=== PATIENT | female | born 1995 | race Caucasian/White ===

== ENCOUNTER 2022-02-11 08:30 | Outpatient (CLI) | payer OTHER, SELFPAY ==
[2022-02-11 09:33] LABS: Albumin* 4.3 g/dL (3.3-5.0); Chloride* 104 mmol/L (96-114)
[2022-02-11 09:34] LABS: Potassium* 4.3 mmol/L (3.6-5.1); Sodium* 139 mmol/L (135-149)
[2022-02-11 09:36] LABS: Aspartate Amino Transferase* 18 U/L (12-35); Bilirubin Total* 0.7 mg/dL (0.1-1.5); Blood Urea Nitrogen* 11 mg/dL (5-24); Carbon Dioxide* 28 mmol/L (20-32); Cholesterol* 181 mg/dL (90-199); Creatinine* 0.8 mg/dL (0.5-1.5); Estimated Glomerular Filt Rate 103 ml/min; Glucose* 85 mg/dL (60-115); Total Protein* 7.1 g/dL (6.0-8.3)
[2022-02-11 09:37] LABS: Alanine Aminotransferase* 18 U/L (4-35); Alkaline Phosphatase* 58 U/L (40-150); Calcium* 9.3 mg/dL (8.4-10.6); HDL Cholesterol* 43 mg/dL (>=50); LDL Cholesterol Calculated 111 mg/dL (<100); Triglycerides* 136 mg/dL (40-149)
[2022-02-11 10:34] LABS: Free T4 Free Thyroxine* 1.26 ng/dL (0.70-1.85)
== END 2022-02-11 08:31 | disposition home or self-care (01) ==
LOC: NFLDREF 08:31
PROVIDERS: PCP Family Medicine; Visit Provider Family Medicine
DX: E03.9 Hypothyroidism, unspecified (principal); E78.5 Hyperlipidemia, unspecified; E66.9 Obesity, unspecified; F41.9 Anxiety disorder, unspecified
CPT/HCPCS: 80053; 80061; 84439; 84443

== ENCOUNTER 2022-05-01 15:05 | Outpatient (CLI) | payer OTHER, SELFPAY | END 2022-05-01 15:06 | disposition home or self-care (01) | LOC: NFLDREF 05-09 08:00 | PROVIDERS: PCP Family Medicine; Referring Provider Family Medicine; Visit Provider Registered Nurse | DX: E03.9 Hypothyroidism, unspecified (principal) | CPT/HCPCS: 84439; 84443 ==

== ENCOUNTER 2022-06-05 16:15 | Outpatient (CLI) | payer OTHER, SELFPAY | END 2022-06-05 16:16 | disposition home or self-care (01) | LOC: NFLDREF 06-06 10:17 | PROVIDERS: PCP Family Medicine; Referring Provider Family Medicine; Visit Provider Registered Nurse | DX: E03.9 Hypothyroidism, unspecified (principal) | CPT/HCPCS: 84443 ==

== ENCOUNTER 2022-06-24 12:39 | Outpatient (CLI) | payer OTHER, SELFPAY | END 2022-06-24 12:40 | disposition home or self-care (01) | PROVIDERS: PCP Family Medicine; Visit Provider Obstetrics & Gynecology | DX: Z34.91 Encounter for supervision of normal pregnancy, unspecified, first trimester (principal); O36.8310 Maternal care for abnormalities of the fetal heart rate or rhythm, first trimester, not applicable or unspecified; Z3A.01 Less than 8 weeks gestation of pregnancy | CPT/HCPCS: 76817; 84443; 84702; 86850; 86900; 86901 ==

== ENCOUNTER 2022-06-26 16:11 | Outpatient (CLI) | payer OTHER, SELFPAY | END 2022-06-26 16:12 | disposition home or self-care (01) | LOC: NFLDREF 06-30 16:00 | PROVIDERS: PCP Family Medicine; Referring Provider Family Medicine; Visit Provider Obstetrics & Gynecology | DX: E03.9 Hypothyroidism, unspecified (principal); Z34.91 Encounter for supervision of normal pregnancy, unspecified, first trimester | CPT/HCPCS: 84443; 84702 ==

== ENCOUNTER 2022-07-08 10:30 | Day surgery (SDC) | payer OTHER, SELFPAY ==
[2022-07-08] MEDS: DOXYCYCLINE HYCLATE 200 MG in 0.9 % SODIUM CHLORIDE Mini-bag 100 ML 100 MG IVPB (10:34)
[2022-07-08 10:50] VITALS: BP 127/88; PULSE 97; RESP 16; TEMP 36.7; O2SAT 97
[2022-07-08 10:58] VITALS: BMI 35.6
[2022-07-08 11:06] LABS: Hemoglobin* 13.4 gm/dL (12.0-16.0)
[2022-07-08] MEDS: LACTATED RINGERS 1000 ML 1,000 ML 100 ML IV (11:09)
[2022-07-08] MEDS: SODIUM CHLORIDE 0.9 % (FLUSH) 10 ML SYRINGE IVF (11:09)
--- NOTE | 2022-07-08 12:37 | W.ANESCHARGE ---
Anesthesia Charges Start Date/Time Anesthesia Start Date: 07/08/22 Anesthesia Start Time: 12:15 Stop Date/Time Anesthesia Stop Date: 07/08/22 Anesthesia Stop Time: 12:52
[2022-07-08] MEDS: miSOPROStoL 800 MCG/4 TABLET PR (12:40)
--- NOTE | 2022-07-08 12:50 | W.PM.GYNPROC ---
Procedure Note Date Seen: 07/08/22 Procedure Details: Preop diagnosis: Missed AB Postop diagnosis: Missed AB Name of procedure: Suction dilation and curettage Surgeon: Raz Morse Electronic Assembly: None Complications: None EBL: 100mL Drains: None Finding: Pelvic exam: Cervix closed, no gross abnormalities or abnormal discharge. Uterine sound 8cm. Risks, benefits, alternatives, and indications of the procedure were discussed with the patient. She voiced an understanding of the procedure and signed the consent. The patient was taken to the OR were MAC anesthesia was administered without difficulty. She was placed in the dorsal lithotomy position with Garrett type stirrups. The patient was prepared and draped in the normal sterile fashion. Her bladder was emptied with in--out catheter. A bivalved speculum was inserted in the posterior aspect of the vagina. 5 mL 1% lidocaine with epi was injected in the anterior lip of cervix, the single-tooth tenaculum was used to grasp the anterior lip of the cervix. The cervix was sequentially dilated utilizing Hegar dilators up to 8mm. A 8 mm suction curette was advanced to the uterine fundus. The suction was then started. The products of conception were evacuated with the curette rotating on the outward movement, this was repeated about 3-5 times. Afterwards a gentle, sharp curettage was then performed with a large curette. Again suction curette inserted and only blood seen to come out. The tenaculum was removed from the cervix and good hemostasis was noted. 800mcg of Cytotec placed rectally. The patient tolerated the procedure well. Instrument and sponge counts were correct x2. Patient was taken to the recovery room in a stable condition. The patient will go home after recovering from anesthesia and meeting all the criteria for discharge. She was given the instructions regarding follow-up visit in 2 weeks at [facility] and instructions for pain medication.
[2022-07-08 12:55] VITALS: BP 106/56; PULSE 107; RESP 20; TEMP 36.5; O2SAT 97
--- NOTE | 2022-07-08 13:01 | SUR.PHASEII ---
noted blood under pt approx spot size of softball
--- NOTE | 2022-07-08 13:04 | W.ANESCHARGE ---
Anesthesia Charges Start Date/Time Anesthesia Start Date: 07/08/22 Anesthesia Start Time: 12:15 Stop Date/Time Anesthesia Stop Date: 07/08/22 Anesthesia Stop Time: 12:52
[2022-07-08 13:08] VITALS: BP 100/56; PULSE 87; RESP 20; O2SAT 98
[2022-07-08 13:15] VITALS: BP 104/66; PULSE 86; RESP 18; O2SAT 98
[2022-07-08 13:30] VITALS: BP 107/57; PULSE 79; RESP 18; O2SAT 98
== END 2022-07-08 13:55 | disposition home or self-care (01) ==
PROVIDERS: PCP Family Medicine; Visit Provider Obstetrics & Gynecology
PROC: (CPT 59820; principal; 2022-07-08 11:45)
DX: O02.1 Missed abortion (principal)
CPT/HCPCS: 59820; 01965; 36415; 85018; 88305; A9270; J2250; J2704; J3010; J7120

== ENCOUNTER 2022-11-09 10:52 | Outpatient (CLI) | payer OTHER, SELFPAY | END 2022-11-09 10:53 | disposition home or self-care (01) | LOC: NFLDREF 22:05 | PROVIDERS: PCP Family Medicine; Referring Provider Family Medicine; Visit Provider Registered Nurse | DX: E03.9 Hypothyroidism, unspecified (principal) | CPT/HCPCS: 84443 ==

== ENCOUNTER 2022-12-04 12:49 | Outpatient (CLI) | payer OTHER, SELFPAY ==
--- NOTE | 2022-12-04 13:00 | CRLHL7_ITS ---
For Patients: As a result of the Cures Act, medical imaging exams and procedure reports are released immediately into your electronic medical record. You may view this report before your referring provider. If you have questions, please contact your health care provider. INDICATION: First trimester scan, establish dates. COMPARISON: None. TECHNIQUE: Real-time de la garza-scale imaging of the pelvis was performed. FINDINGS: Sonographic imaging demonstrates a single living intrauterine gestation. The embryo demonstrates a regular cardiac rate measuring 178 beats per minute. The embryo`s crown-rump length measurement of 2.2 cm corresponds to a gestational age of 8 weeks 6 days with a sonographic due date of 07/10/2023. There is a normal-appearing yolk sac. There are no gross abnormalities noted within the embryo at this early state of development. The gestational sac has a normal appearance. There is no evidence of a perigestational hemorrhage. The amount of fluid within the sac appears appropriate for gestational age. The cervix is closed. The myometrium appears normal. The ovaries are of normal size. Corpus luteal cyst left ovary. There are no suspicious fluid collections noted in the cul-de-sac. IMPRESSION: Normal first trimester OB ultrasound exam. Gestational age calculated at 8 weeks 6 days with a sonographic due date of 07/10/2023. Dictated by Segundo Mccartney MD @ 12/04/2022 3:32:50 PM (Electronically Signed)
== END 2022-12-04 12:50 | disposition home or self-care (01) ==
PROVIDERS: PCP Family Medicine; Visit Provider Registered Nurse
DX: Z34.91 Encounter for supervision of normal pregnancy, unspecified, first trimester (principal)
CPT/HCPCS: 76817; 86592; 86703; 86704; 86706; 86762; 86787; 86803; 86850; 86900; 86901; 87086; 87340; 87491; 87591

== ENCOUNTER 2022-12-28 18:35 | Emergency (ER) | payer OTHER, SELFPAY ==
[2022-12-28] VITALS (26 sets, daily range): BP systolic 108–169; BP diastolic 63–98; PULSE 93–131; RESP 16; TEMP 36.9; O2SAT 94–100; BMI 36.0
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
[2022-12-28 19:53] LABS: Basophils Absolute Auto 0.01 K/uL (0.00-0.30); Basophils Percent Auto 0.1 % (0.0-3.0); Eosinophils Absolute Auto 0.09 K/uL (0.00-0.50); Eosinophils Percent Auto 0.8 % (0.0-7.0); Hematocrit 40.4 % (33.0-51.0); Hemoglobin* 13.8 gm/dL (12.0-16.0); Immature Granulocytes Abs Auto 0.09 K/uL (0.00-0.30); Immature Granulocytes Pct Auto 0.8 %; Lymphocytes Percent Auto 13.6 % (20-44); Mean Corpuscular HGB Conc 34 gm/dL (32-36); Mean Corpuscular Hemoglobin 30 pg (26-34); Mean Corpuscular Volume 88 fL (80-100); Monocytes Percent Auto 5.4 % (0.0-11.0); Neutrophils Percent Auto 79.3 % (42.0-72.0); Platelet Count* 354 K/uL (140-440); White Blood Count* 10.88 K/uL (4.50-11.00)
[2022-12-28 19:57] LABS: Slide Review Reflex No
[2022-12-28 20:02] LABS: Appearance Urine Cloudy (Clear); Bilirubin Urine Negative (Negative); Blood Urine Negative (Negative); Color Urine Yellow (Yellow); Glucose Urine Negative (Negative); Ketones Urine Negative (Negative); Leukocyte Esterase Urine 3+ (Negative); Nitrite Urine Negative (Negative); Protein Urine Negative (Negative); Urobilinogen Urine 0.2 (0.2-1.0)
[2022-12-28 20:27] LABS: Amorphous Sediment Urine Few; Bacteria Urine Many; RBC Urine 0-2 (0-2); Squamous Epithelial Cell Urine Moderate (None-Few); WBC Urine 25-50 (0-5)
[2022-12-28 20:28] LABS: Mucus Urine Few
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
== END 2022-12-28 21:44 | disposition home or self-care (01) ==
PROVIDERS: Emergency Provider Family Medicine; PCP Family Medicine
DX: R51.9 Headache, unspecified (principal); V43.52XA Car driver injured in collision with other type car in traffic accident, initial encounter
CPT/HCPCS: 36415; 76801; 81001; 85025; 87086; 93005; 99284; 99291

== ENCOUNTER 2022-12-30 14:50 | Outpatient (CLI) | payer OTHER, SELFPAY | END 2022-12-30 14:51 | disposition home or self-care (01) | LOC: NFLDREF 12-31 01:04 | PROVIDERS: PCP Family Medicine; Referring Provider Family Medicine; Visit Provider Obstetrics & Gynecology | DX: Z34.91 Encounter for supervision of normal pregnancy, unspecified, first trimester (principal); E03.9 Hypothyroidism, unspecified | CPT/HCPCS: 84443 ==

== ENCOUNTER 2023-02-24 08:00 | Outpatient (CLI) | payer OTHER, SELFPAY ==
--- NOTE | 2023-02-24 08:15 | CRLHL7_ITS ---
For Patients: As a result of the Century Cures Act, medical imaging exams and procedure reports are released immediately into your electronic medical record. You may view this report before your referring provider. If you have questions, please contact your health care provider. INDICATION: Evaluate anatomy. COMPARISON: 12/28/2022 TECHNIQUE: Real time de la garza scale imaging of the fetus was performed as well as color Doppler analysis of the umbilical vessels. FINDINGS: Sonographic imaging demonstrates a single living intrauterine gestation. Fetus demonstrates a regular cardiac rate of 147 beats per minute. Fetus has a variable position. The placenta lies posteriorly without evidence of placenta previa. The edge of the placenta is located 2.7 cm from the internal cervical os. Amniotic fluid volume appears normal. Single deepest vertical pocket: 3.6 cm. The cervix is closed and measures 3.7 cm in length. The composite ultrasound gestational age is calculated at 20 weeks 3 days with an estimated sonographic due date of 07/11/2023. The estimated weight is 361 grams which lies at the 76th %. The following biometric measurements were obtained: Biparietal diameter: 4.7 cm/20 weeks 1 day 54th% Head circumference: 18.1 cm/20 weeks 3 days 65th% Abdominal circumference: 15.4 cm/20 weeks 4 days 64th% Femur length: 3.4 cm/20 weeks 4 days 63rd% The HC/AC ratio measures: 1.17 range (1.07-1.25) On anatomic survey, there is a normal appearance of the cerebral ventricles, cavum septi pellucidi, cisterna magna and cerebellum. The nose, lips, and facial profile appear normal. The cervical, thoracic and lumbar spine are well visualized and appear normal. There is a normal four-chamber heart view and the left and right ventricular outflow tracts appear normal. The diaphragm and stomach appear normal. The kidneys and bladder also appear normal. There is a normal three-vessel cord and cord insertion site. The four extremities appear normal. IMPRESSION: Normal OB ultrasound exam with concordance of clinical and sonographic dating. No intrinsic abnormalities noted on anatomic survey. Dictated by Segundo Mccartney MD @ 02/24/2023 11:40:33 AM (Electronically Signed)
== END 2023-02-24 08:01 | disposition home or self-care (01) ==
PROVIDERS: PCP Family Medicine; Visit Provider Obstetrics & Gynecology
DX: Z34.92 Encounter for supervision of normal pregnancy, unspecified, second trimester (principal); Z3A.20 20 weeks gestation of pregnancy
CPT/HCPCS: 76805

== ENCOUNTER 2023-03-24 09:41 | Outpatient (CLI) | payer OTHER, SELFPAY | END 2023-03-24 09:42 | disposition home or self-care (01) | LOC: NFLDREF 03-26 14:53 | PROVIDERS: PCP Family Medicine; Referring Provider Family Medicine; Visit Provider Obstetrics & Gynecology | DX: E03.9 Hypothyroidism, unspecified (principal) | CPT/HCPCS: 84443 ==

== ENCOUNTER 2023-04-21 10:21 | Outpatient (CLI) | payer OTHER, SELFPAY | END 2023-04-21 10:22 | disposition home or self-care (01) | LOC: NFLDREF 10:23 | PROVIDERS: PCP Family Medicine; Visit Provider Obstetrics & Gynecology | DX: Z34.92 Encounter for supervision of normal pregnancy, unspecified, second trimester (principal) | CPT/HCPCS: 84443; 86592 ==

== ENCOUNTER 2023-06-02 09:48 | Outpatient (CLI) | payer OTHER, SELFPAY | END 2023-06-02 09:49 | disposition home or self-care (01) | PROVIDERS: PCP Family Medicine; Visit Provider Obstetrics & Gynecology | DX: O99.713 Diseases of the skin and subcutaneous tissue complicating pregnancy, third trimester (principal); E03.9 Hypothyroidism, unspecified; L29.9 Pruritus, unspecified; Z3A.34 34 weeks gestation of pregnancy; Z13.228 Encounter for screening for other metabolic disorders | CPT/HCPCS: 80053; 82239; 84443 ==

== ENCOUNTER 2023-06-15 09:23 | Outpatient (CLI) | payer OTHER, SELFPAY ==
--- NOTE | 2023-06-15 09:45 | US_ITS ---
Patient: ANGIE MUELLER Facility:?[facility] Patient ID:?[id number] Site Patient ID:?[id number]. Site :?[id number] Study:?US-OB Pelvis BPP W GROWTH-06/15/2023 10:05:10 AM Ordering Physician:?RINA KEARNS Final Report: INDICATION: Obesity TECHNIQUE: Real time de la garza scale imaging of the fetus was performed. COMPARISON: 02/24/2023 FINDINGS: Sonographic imaging demonstrates a single living intrauterine gestation. Fetus demonstrates a regular cardiac rate of 154 beats per minute. Fetus has a tanna breech position. The placenta lies posteriorly. Amniotic fluid volume appears normal and there is a single deepest pocket of 6.0 cm. The estimated weight is 3272gm which lies at the 92nd %. On the prior OB ultrasound dated 02/24/2023 the estimated weight was at the 76th percentile. BPD 55th percentile. HC 79th percentile. AC greater than 97th percentile. FL 76th percentile. The fetus was active and demonstrated normal breathing movements. There was normal flexion and extension of the trunk and extremities. IMPRESSION: Normal biophysical profile score 8/8. Sonographic gestational age 37 weeks 2 days and sonographic due date of 07/04/2023. Sonographic age 10 days ahead of the clinical age. Estimated weight 92nd percentile. Abdominal circumference greater than 97th percentile. Dictated by Segundo Mccartney MD @ 06/15/2023 10:37:04 AM Signed by:?Segundo Mccartney MD @06/15/2023 10:37:04 AM (Electronic Signature)
== END 2023-06-15 09:24 | disposition home or self-care (01) ==
LOC: US 09:24
PROVIDERS: PCP Family Medicine; Visit Provider Obstetrics & Gynecology
DX: O99.213 Obesity complicating pregnancy, third trimester (principal); O36.63X0 Maternal care for excessive fetal growth, third trimester, not applicable or unspecified; Z3A.37 37 weeks gestation of pregnancy
CPT/HCPCS: 76816; 76819

== ENCOUNTER 2023-06-15 10:17 | Outpatient (CLI) | payer OTHER, SELFPAY ==
[2023-06-16 13:34] LABS: Strep B DNA Probe POSITIVE (Negative)
[2023-06-16 13:43] LABS: Strep B Susceptibility Needed? No
== END 2023-06-15 10:18 | disposition home or self-care (01) ==
LOC: NFLDREF 10:17
PROVIDERS: PCP Family Medicine; Visit Provider Obstetrics & Gynecology
DX: Z34.93 Encounter for supervision of normal pregnancy, unspecified, third trimester (principal)
CPT/HCPCS: 87081; 87653

== ENCOUNTER 2023-06-23 08:01 | Outpatient (CLI) | payer OTHER, SELFPAY ==
[2023-06-23] VITALS (26 sets, daily range): BP systolic 122–135; BP diastolic 66–82; PULSE 108–135; RESP 18; TEMP 36.6; O2SAT 96–100
[2023-06-23] MEDS: TERBUTALINE 1 MG/ML INJ 0.25 MG SUBCUT (09:48)
--- NOTE | 2023-06-23 10:40 | W.PM.GYNPROC ---
Procedure Note Time Seen by Provider: 10:40 Date of procedure: 06/23/23 Will [facility] bill your pro fee for this procedure?: Yes Pre-op diagnosis: Jeffery breech malpresentation Post-op diagnosis: Transverse malpresentation Procedure: External cephalic version (unsuccessful) Anesthesia: none Complications: None Surgeon: Giuseppe Contreras MD Senior Planner: Bri Hardwick Condition: stable Procedure Description: The risks, benefits, and alternatives of performing an ECV were discussed on admission, including the risk of risks of a non-reassuring heart rate, PROM, placental abruption, possible emergency , and fetomaternal hemorrhage. We reviewed that success rate is dependent upon provider experience, amniotic fluid volume, placental location, and maternal weight. Regional anesthesia is associated with improved success. We discussed that in the case of a failed ECV, we plan a delivery for persistent malpresentation. Consent was obtained and the patient desired to proceed. Ultrasound confirmed jeffery breech malpresentation prior to procedure. Pre-procedure NST was reactive. Terbutaline 0.25 mg SQ was given and we then proceeded with the procedure. With manual pressure applied to the maternal abdomen, we attempted to elevate the breech and proceed with version in a clockwise fashion. The vertex was noted to be mobile, where we were able to successfully convert presentation to transverse back up with 1 attempt. We then proceeded with 3 more clockwise attempts to convert from transverse to cephalic presentation, however the breech was unable to be moved beyond the maternal right pelvis. heart rate checks were performed periodically, which were reassuring throughout. A total of 4. Ultimately the procedure was unsuccessful and presentation at the conclusion was transverse. Both mom and baby were stable. During a period of recovery, she had a reactive and reassuring heart tracing without uterine contractions. She was discharged to home in stable condition, return precautions reviewed.
--- NOTE | 2023-06-23 10:50 | P.OBHP_ITS ---
OB - H&P: HPI Labor/Induction History of Present Illness Chief Complaint: The patient is a [] year old [] para [] at [] weeks gestation by [], who presents with []. [] Chief complaint: ECV Narrative: Ingrid Rouse is a 27 year old female Specific Issues/Plans # BMI 36.2 Hemoglobin A1c 5% on 12/04/22 Daily baby aspirin starting at 12 weeks to reduce risk of preeclampsia Growth US and BPP at 36 weeks, then weekly NST until delivery. # Hypothyroidism. Taking 175 mcg daily. Will check TSH with free T4 each trimester. * 12/30/22:0.404 * 03/24/23:0.395 * 04/21/23: 0.335 * 06/02/23: 0.535 * 6 weeeks : [] # Due for Pap smear. # Tachycardic at 30 weeks. 125 bpm. Repeat 115-123. Rapid rate, regular rhythm. Lungs clear. Recent normal TSH and hgb. EKG on 05/05/23: Sinus tachy at [address] Kim - EKG not concerning. I suspect dehydration. Encouraged pushing fluids. If symptomatic, or persistent tachy, return for reevaluation. # Body itchiness with papular lesions suspect urticaria vs PUPPS. -Topical triamcinolone and vistaril ordered: symptoms resolved Bile acids normal at 3 # Jeffery breech presentation at 35 weeks, 6 days gestation. External cephalic version to be scheduled 06/23/23. # Suspected macrosomia at 36 weeks, EFW 92% and AC >97%. # GBS positive. No antibiotic allergies. Growth US and BPP at 36 weeks due to obesity and hypothyroidism: EFW 3272 g = 92%. AC greater than 97%. BPD 55%, HC 79%, FL 76%. SDP 6 cm. BP 10/06. Patient plans to obtain flu vaccination through her employer. COVID: Completed and boosted, not up-to-date with boosters. Recommended. Patient declines 01/27. TDAP: 05/05/23 Meds Home Medications and Allergies Home Medications Medication Instructions Recorded Confirmed Type prenat.vits,sylvia,wbc-zbdq-rdsah 1 tab PO QDAY 07/02/22 06/23/23 History aspirin 81 mg capsule 81 mg PO QDAY 01/27/23 06/23/23 History Allergies Allergy/AdvReac Type Severity Reaction Status Date / Time No Known Drug Allergies Allergy Verified 06/23/23 08:34 OB - H&P: Exam Physical Exam: Vital signs: Temp Pulse Resp BP Pulse Ox 97.8 F 113 H 18 122/66 98 06/23/23 08:20 06/23/23 08:40 06/23/23 08:20 06/23/23 08:40 06/23/23 10:47
--- NOTE | 2023-06-23 10:51 | P.OBHP_ITS ---
OB - H&P: HPI Labor/Induction History of Present Illness Time Seen by Provider: 11:00 Date Seen: 06/23/23 Chief Complaint: Ingrid is a 27yo at 37w0d seen for ECV for breech malpresentation and 37 week visit for H&P. Her H&P was completed at triage given concurrent procedure. is complicated by breech presentation, suspected macrosomia, obesity, dyslipidemia migraines and anxiety. She denies regular/painful uterine contractions, vaginal bleeding, leaking of fluid. Endorses active movement. Review of system is was negative - no chest pain, dyspnea, fevers/chills, nausea/vomiting, bowel or bladder concerns. Past medical, surgical and social history reviewed and updated as needed. Chief complaint: ECV Narrative: Ingrid Rouse is a 27 year old female Specific Issues/Plans # BMI 36.2 Hemoglobin A1c 5% on 12/04/22 Daily baby aspirin starting at 12 weeks to reduce risk of preeclampsia Growth US and BPP at 36 weeks, then weekly NST until delivery. # Hypothyroidism. Taking 175 mcg daily. Will check TSH with free T4 each trimester. * 12/30/22:0.404 * 03/24/23:0.395 * 04/21/23: 0.335 * 06/02/23: 0.535 * 6 weeks : [] # Due for Pap smear. # Tachycardic at 30 weeks. 125 bpm. Repeat 115-123. Rapid rate, regular rhythm. Lungs clear. Recent normal TSH and hgb. EKG on 05/05/23: Sinus tachy at [address] Kim - EKG not concerning. I suspect dehydration. Encouraged pushing fluids. If symptomatic, or persistent tachy, return for reevaluation. # Body itchiness with papular lesions suspect urticaria vs PUPPS. -Topical triamcinolone and vistaril ordered: symptoms resolved Bile acids normal at 3 # Persistent malpresentation [x] unsuccessful ECV - IOL consent and scheduling form completed 06/22 # Suspected macrosomia at 36 weeks, EFW 92% and AC >97%. # GBS positive. No antibiotic allergies. Growth US and BPP at 36 weeks due to obesity and hypothyroidism: EFW 3272 g = 92%. AC greater than 97%. BPD 55%, HC 79%, FL 76%. SDP 6 cm. BP 8/8. Patient plans to obtain flu vaccination through her employer. COVID: Completed and boosted, not up-to-date with boosters. Recommended. Patient declines 01/27. TDAP: 05/05/23 Meds Home Medications and Allergies Home Medications Medication Instructions Recorded Confirmed Type prenat.vits,sylvia,byk-vlqm-wklcq 1 tab PO QDAY 07/02/22 06/23/23 History aspirin 81 mg capsule 81 mg PO QDAY 01/27/23 06/23/23 History Allergies Allergy/AdvReac Type Severity Reaction Status Date / Time No Known Drug Allergies Allergy Verified 06/23/23 08:34 OB - H&P: Exam Physical Exam: Vital signs: Temp Pulse Resp BP Pulse Ox 97.8 F 113 H 18 122/66 98 06/23/23 08:20 06/23/23 08:40 06/23/23 08:20 06/23/23 08:40 06/23/23 10:47 Narrative: Physical exam: General: No acute distress Psych: Alert and oriented x3, full affect Heart: Regular rate and rhythm, no murmur rub or gallop Lungs: Clear to auscultation bilaterally Abdomen: Gravid. Otherwise soft and nontender. Transverse presentation after unsuccessful ECV. OB - Problem Based A/P Additional Plan (1) Breech presentation: Status: Acute (2) macrosomia affecting management of mother, antepartum: Status: Acute (3) Obesity (BMI 35.0-39.9 without comorbidity): Status: Acute (4) Migraines: Status: Acute (5) Mild anxiety: Status: Chronic (6) Dyslipidemia: Status: Acute (7) Hypothyroid: Status: Chronic Plan Ms. Rouse is a 26yo at 37w0d seen for ECV and visit H&P. Please see procedure note for details of ECV (unsuccessful). Past medical, soc ial and surgical history is updated as needed. No acute concerns. Plan to proceed with primary delivery at/beyond 39 weeks in the setting of malpresentation. Recommend we read assess presentation prior to proceeding with delivery, where induction could be considered if the fetus spontaneously converts to cephalic. We additionally discussed the role of potential repeat ECV under spinal anesthetic, patient declined. Next visit in 1 week. Return precautions reinforced.
[2023-06-23] MEDS: LACTATED RINGERS 1000 ML 500 ML IV (11:30)
[2023-06-23] MEDS: LACTATED RINGERS 500 ML IV (12:30)
--- NOTE | 2023-06-23 13:07 | PC.OBNST ---
NST Note NST Note Start: 06/23/23 08:21 Freq: ONCE Status: Active Protocol: Document 06/23/23 13:06 [id number] (Rec: 06/23/23 13:07 CUDDY [id number]) NST Note 1 Para (# of births) 0 EDC 07/14/23 Gestational Age In Weeks & Days 37 Weeks & 0 Days Other Complaints Here for an ECV Reactive Yes Appropriate for Gestational Age Yes RN Nida Way RN Date 06/23/23 Reactive Yes Appropriate for Gestational Age Yes RN Saira Blanco RN Date 06/23/23 OB NST charge Yes Complete NST Note via Write Note Yes The provider's electronic signature indicates the NST is reactive/appropriate for gestational age. *Note to provider: If an addendum is required, open the patient's chart and click on the note under the Nurse/Allied Health tab.
== END 2023-06-23 13:10 | disposition home or self-care (01) ==
LOC: OB CLI 08:02 → OB 08:03
PROVIDERS: PCP Family Medicine; Visit Provider Obstetrics & Gynecology
DX: O32.1XX0 Maternal care for breech presentation, not applicable or unspecified (principal); O99.213 Obesity complicating pregnancy, third trimester; E66.9 Obesity, unspecified; Z3A.37 37 weeks gestation of pregnancy
CPT/HCPCS: 59025; 59412; 76815; G0463; J3105; J7120

== ENCOUNTER 2023-07-07 05:03 | Inpatient (IN) | payer OTHER, SELFPAY ==
[2023-07-07] VITALS (34 sets, daily range): BP systolic 105–147; BP diastolic 36–78; PULSE 91–113; RESP 16–18; TEMP 36.4–37.1; O2SAT 92–98; BMI 39.0
[2023-07-07] MEDS: LACTATED RINGERS 1000 ML 1,000 ML 750 ML IV ×2 (06:00→07:20)
[2023-07-07 06:06] LABS: Basophils Absolute Auto 0.02 K/uL (0.00-0.30); Basophils Percent Auto 0.2 % (0.0-3.0); Eosinophils Absolute Auto 0.05 K/uL (0.00-0.50); Eosinophils Percent Auto 0.5 % (0.0-7.0); Hematocrit 38.9 % (33.0-51.0); Hemoglobin* 13.2 gm/dL (12.0-16.0); Immature Granulocytes Abs Auto 0.08 K/uL (0.00-0.30); Immature Granulocytes Pct Auto 0.8 %; Lymphocytes Percent Auto 16.9 % (20-44); Mean Corpuscular HGB Conc 34 gm/dL (32-36); Mean Corpuscular Hemoglobin 30 pg (26-34); Mean Corpuscular Volume 88 fL (80-100); Monocytes Percent Auto 5.8 % (0.0-11.0); Neutrophils Percent Auto 75.8 % (42.0-72.0); Platelet Count* 300 K/uL (140-440); RDW Coefficient of Variation % 13.1 % (11.5-15.5); Red Blood Count 4.42 m/uL (4.00-5.20); White Blood Count* 10.52 K/uL (4.50-11.00)
[2023-07-07 06:11] LABS: Slide Review Reflex No
--- NOTE | 2023-07-07 07:20 | W.PM.H&PU ---
History & Physical Update History & Physical Update H&P Reviewed and patient assessed: No changes noted H&P Updates: Ms. Zheng is a 27yo at 39w0d GA admitted for primary in the setting of breech malpresentation (unsuccessful ECV at 37 weeks). is otherwise complicated by anxiety, dyslipidemia, hypothyroidism and GBS positivity. Please see full H&P by myself on 06/23/23. Ingrid is feeling well with no acute concerns today. Denies any abdominal pain, vaginal bleeding or leaking of fluids today. Endorses active movement. We reviewed risks/benefits and alternatives to today. All questions answered. Consent was re-initialed. Plan perioperative ancef. BT O+. Peds to be present for delivery in the setting of breech.
[2023-07-07] MEDS: CEFAZOLIN 2 GM INJ IVP (07:48)
[2023-07-07] MEDS: miSOPROStoL 800 MCG/4 TABLET PR (08:44)
--- NOTE | 2023-07-07 08:44 | P.OBPRC_ITS ---
Procedure Time Seen by Provider: 08:44 Date of procedure: 07/07/23 Pre-op diagnosis: Breech malpresentation, 39 weeks gestation Post-op diagnosis: same Procedure Done: Global Will [facility] bill your pro fee for this procedure?: Yes Blood Loss Measurement Type: QBL (350) Bakri Used: No IV fluids (mL): 1,400 Urine Output (mL): 200 Surgeon: Giuseppe Contreras MD Anesthesia Type: Spinal Findings: Unremarkable uterus, bilateral fallopian tubes and ovaries Procedure Name: Primary delivery Procedure Description: Patient was taken to the operating room with IV running. She received cefazolin in preoperative prophylaxis. Spinal anesthesia was administered. Ferraro catheter was inserted. She was prepped and draped in the usual sterile fashion. Anesthesia was tested and found to be adequate. A low-transverse skin incision was made with a scalpel and carried through to the underlying layer of fascia with the scalpel. The subcutaneous fat was dissected off the underlying fascia with Bovie and blunt dissection. The fascia was nicked in the midline with a scalpel, and this incision was extended laterally with scissors. The rectus muscles were in the midline. Peritoneum was identified and entered bluntly. Bovie was used to widen this opening laterally. Ben O retractor was inserted and tightened down, providing excellent visualization of the lower uterine segment. The bladder reflection was found to be well below the planned site for hysterotomy. Low-transverse uterine incision was made with a scalpel. Incision was widened bluntly. The infant's breech was grasped through the hysterotomy and elevated to the hysterotomy. The left leg and breech first delivered, followed by the right leg and trunk. Fetus was rotated to deliver the right then left arms. The head delivered with Vguxvkxxk-Dufzjez-Iljn maneuver and fundal pressure without difficulty. No nuchal cord was noted. Cord was clamped and cut after 30 seconds. Infant was handed off to attending nurses. The placenta was delivered with gentle traction on the cord. The uterus was cleaned of all clots and debris with the dry lap pad. No extensions were noted. The hysterotomy was reapproximated with 0 Vicryl in a running, locked fashion. Uterine atony was noted, where IV oxytocin rate was increased and a dose of IM methergine was administered. Second layer of the same suture was used in imbricating fashion to obtain hemostasis. The adnexa were examined and noted to be normal in appearance. The cul-de-sac and gutters were cleansed with dampened laparotomy sponge, removing any further clots and debris. The Ben O retractor was removed. The hysterotomy was reexamined and a small area of oozing at the midline was noted, where an additional figure of eight with 0 vicryl was applied. Hysterotomy was found to be hemostatic. Excellent uterine tone was noted. The rectus muscles were examined and found to be hemostatic. The fascia was reapproximated with 0 Vicryl in a running fashion. Subcutaneous fat was irrigated and Bovie used on oozing vessels. The subcutaneous fat was reapproximated with 2-0 vicryl suture in a continuos fashion. The skin was closed with a subcuticular stitch of 3-0 monocryl. Surgical glue was applied above this. Patient tolerated procedure well was taken to recovery area in stable condition. Surgical debrief was completed. details: - Liveborn female fetus - weight: 8lb 8 oz - APGARs were 9 and 9 at 1 and 5 minutes respectively Complications: None Pathology: none sent Surgery Debrief Performed: Yes Condition: stable Disposition: floor
--- NOTE | 2023-07-07 09:11 | W.ANESCHARGE ---
Anesthesia Charges Start Date/Time Anesthesia Start Date: 07/07/23 Anesthesia Start Time: 07:24 Stop Date/Time Anesthesia Stop Date: 07/07/23 Anesthesia Stop Time: 08:58
--- NOTE | 2023-07-07 09:38 | P.NB_ITS ---
Nerve Block Nerve Block Time Seen by Provider: 08:50 Date Seen: 07/07/23 Type of block requested by surgeon for post-operative analgesia: TAP Side: bilateral Time out performed: Yes Verification of patient name: Yes Verification of date of : Yes Site marking: site marked Name of person performing procedure: Lenny Continuous monitoring Was continuous monitoring of O2 sat, B/P, bus driver/monitor, recorded every 15 minutes?: Yes Procedure Checklist: sterile prep, needles and gloves Ultrasound guided. Images saved: Yes Medications given in 5ml increments after negative aspiration: Marcaine %: 0.25 mL: 30 Needle gauge: 20 and Exparel mL: 10 Patient tolerated procedure well: Yes Additional comments: Needle noted between internal oblique and transversus abdominus. Local spread visualized Block Charges Block Charge (with Pro Fee): TAP Bilateral Use of Ultrasound Machine for Block: Yes- US Guidance/pain block
--- NOTE | 2023-07-07 09:38 | W.ANESCHARGE ---
Anesthesia Charges Start Date/Time Anesthesia Start Date: 07/07/23 Anesthesia Start Time: 07:24 Stop Date/Time Anesthesia Stop Date: 07/07/23 Anesthesia Stop Time: 08:58
[2023-07-07] MEDS: LACTATED RINGERS 1000 ML 1,000 ML 75 ML IV (12:24)
[2023-07-07] MEDS: DOCUSATE SODIUM 100 MG CAPSULE PO (14:30)
[2023-07-07] MEDS: KETOROLAC 30 MG/ML inj IVP ×2 (14:30→20:30)
[2023-07-08] VITALS (15 sets, daily range): BP systolic 97–127; BP diastolic 67–92; PULSE 82–103; RESP 16–18; TEMP 36.6–37.1; O2SAT 95–97
[2023-07-08] MEDS: KETOROLAC 30 MG/ML inj IVP ×3 (02:21→15:09)
[2023-07-08] MEDS: SODIUM CHLORIDE 0.9 % (FLUSH) 10 ML SYRINGE IVF (02:23)
--- NOTE | 2023-07-08 08:06 | PM.OBPNVD1 ---
OB - PN:Subj Subjective Date Seen: 07/08/23 Patient comments OB post-: pain well controlled infant status: and doing well feeding status: exclusively Narrative: Ingrid is a 27 y.o. who was admitted to [facility] for primary C/S for breech.? She had an uncomplicated primary .? ? The patient feels well.? The pain is well controlled with current medications.? She has no new complaints.? She is breast feeding and reports things are going well.? the patient has done well.? Vitals have been stable.? She has remained afebrile.? Has a good appetite, is tolerating a general diet.? She is voiding without difficulty.? She is passing gas and has not had a bowel movement.? She is ambulating and denies any dizziness.? Has Small amount of rubra lochia.? OB - PN: Obj Exam Physical Exam: Vital signs: Temp Pulse Resp BP Pulse Ox O2 Del Method 97.8 F 91 18 100/69 97 Room Air 07/08/23 04:04 07/08/23 04:04 07/08/23 06:46 07/08/23 04:04 07/08/23 04:04 07/08/23 04:04 Narrative: GENERAL APPEARANCE:? normal affect, alert, no distress MOOD:? appropriate CHEST:? clear to auscultation HEART:? regular rate and rhythm ABDOMEN:? soft, non-tender the uterine fundus is firm At Umbilicus, Midline and is appropriate for the stage of recovery. EXTREMITIES:? normal and no edema Incision: Dressing clean dry and intact, due to be removed today Urinary Catheter Management: Straight: Cath placed during this visit: no Urethral: Cath placed during this visit: yes, but has since been removed by the nurse Reason for continuing: decision to DC catheter Insertion date: 07/07/23 Insertion time: 07:42 Removal date: 07/07/23 Removal time: 21:30 OB - PN: Obj Data Labs Labs: Laboratory Results - last 24 hr 07/08/23 06:12 Hgb 11.0 L OB - PN: A/P Delivery Assessment and Plan (1) care following delivery: Status: Acute (2) Lactating mother: Status: Acute (3) Breech presentation: Status: Acute (4) Obesity (BMI 35.0-39.9 without comorbidity): Status: Acute (5) Hypothyroid: Status: Chronic Plan day: 1 Plan: routine care Comments: Assessment/Plan?G 1 P 1 status post uncomplicated primary .? ?? 1.? Continue route PP cares? 2.? .? May see if desired? 3.? Anticipate discharge home tomorrow or the following day per pt preference? 4. Elevated BP without the diagnosis of hypertension. If additional elevated BP, plan for preeclampsia labs. ?
[2023-07-08] MEDS: DOCUSATE SODIUM 100 MG CAPSULE PO (08:30)
[2023-07-08] MEDS: ACETAMINOPHEN 500 MG TABLET 1000 MG PO (12:47)
[2023-07-08] MEDS: IBUPROFEN 600 MG TABLET PO (20:46)
[2023-07-09] MEDS: ACETAMINOPHEN 500 MG TABLET 1000 MG PO ×2 (01:02→08:00)
[2023-07-09 03:57] LABS: Rapid Plasma Reagin (RPR) Non Reactive (Non Reactive)
[2023-07-09] MEDS: IBUPROFEN 600 MG TABLET PO (04:40)
[2023-07-09] MEDS: DOCUSATE SODIUM 100 MG CAPSULE PO (08:00)
--- NOTE | 2023-07-09 08:34 | PM.OBDSVD1 ---
DS: Providers Provider Date Seen: 07/09/23 Date of admission: 07/07/23 05:03 Primary care physician: Anette Segovia MD Admitting Clinician: Kindra Contreras MD Attending Physician on discharge: Kindra Contreras MD Date of Discharge: 07/09/23 DS: Diagnosis Discharge Diagnosis (1) care following delivery: Status: Acute (2) Lactating mother: Status: Acute (3) Obesity (BMI 35.0-39.9 without comorbidity): Status: Acute (4) Hypothyroid: Status: Chronic Exam Narrative: Exam Narrative: GENERAL APPEARANCE:? normal affect, alert, no distress? MOOD:? appropriate? CHEST:? clear to auscultation and percussion? HEART:? regular rate and rhythm? ABDOMEN:? soft, non-tender the uterine fundus is U/2 and is appropriate for the stage of recovery.?Incision is open to air. Well approximated without drainage, erythema, or edema. EXTREMITIES:? normal and no edema? Const: Vital Signs, click to edit/add: Vital Signs - 24 hr 07/08/23 08:35 07/08/23 12:32 07/08/23 16:00 Temperature 98.4 F 98.2 F 98.4 F Pulse Rate [Pulse Oximeter] 90 93 103 H Respiratory Rate 16 16 16 Blood Pressure [Le ft Arm] 111/78 122/78 120/73 Pulse Oximetry 96 97 Oxygen Delivery Me thod Room Air Room Air 07/08/23 23:33 Temperature 97.9 F Pulse Rate [Pulse Oximeter] 82 Respiratory Rate 16 Blood Pressure [Le ft Arm] 127/92 H Pulse Oximetry 96 Oxygen Delivery Me thod Room Air Documenting provider has reviewed patient's vital signs: yes OB - DS: Summary Hospital Course Hospital Course: The patient is a 27 year old G 1 P 1 at 39.0 weeks gestation that was admitted to the Center on 07/07/23 for primary section for breech presentation. She had an uncomplicated delivery. She delivered a viable female . She is breast feeding. States that when baby is awake she latches well but they are having difficulty keeping her awake. They have been working with the nurses and it is improving. the patient has done well. Her pain is well controlled with current medications.? She has no new complaints.? Urinary output is adequate and she is voiding without difficulty.? Has a good appetite, is tolerating a general diet, is passing flatus, and has had a bowel movement.? Has scant amount of rubra lochia.? She is ambulating well. She declines a prescription for oxycodone as her pain has been very well controlled with ibuprofen and Tylenol. She is planning condoms or a diaphragm for control. Peripartum Data delivery method: Primary C/S; Non-Labored Procedures: Procedures Operation Date: 07/07/23 07:15 Actual Procedure Side Surgeon p Primary Section Kindra Contreras MD complications: none Gender: Female Discharge Plan: Home Status at Discharge Functional status at discharge: independent ambulation Overall status at discharge: patient is progressing back to baseline Time Spent with Patient Time attestation: Total time spent providing and/or coordinating discharge services: Discharge Plan Discharge Disposition: Home, Self-Care Date of Admission: 07/07/23 05:03 Attending Provider on Discharge: Roz Parra Primary Care Provider: Anette Segovia Condition: Stable Anticipated Discharge Date/Time: 07/09/23 14:00 Discharge Medications: New docusate sodium 100 mg Capsule 100 mg PO DAILY Qty: 90 0RF Rx Instructions: Take 1-2 tablets daily as needed for constipation. ibuprofen 600 mg Tablet 600 mg PO Q6H PRNQty: 60 0RF Continued prenat.vits,sylvia,tdj-phhm-jugme Tablet 1 tab PO QDAY levothyroxine 175 mcg tablet 175 mcg PO DAILY Qty: 30 2RF Discharge Orders: Discharge Order (Routine); Ordered 07/09/23 Ordered By: Roz Parra Consulting provider completed their portion of the discharge: Yes Patient Education: OB /Breast Feeding Additional Instructions: Discharge instructions were reviewed with the patient including signs and symptoms of infection and home going medications? ?? Activity restrictions:? Lifting Restrictions: 20 pounds for 6 weeks? No high-impact or core exercises for 6 weeks.?? No not submerge incision under water X 2 weeks?? Nothing vaginally for 6 weeks: no tampons or intercourse? Do not drive while taking narcotic pain medication(s)? Off Work or School for 8 weeks? ?? Symptoms to report to doctor:? -Bleeding that saturates more than one pad per hour? -Passing clots larger than the size of a golf ball? -Pain not relieved by prescribed medication? -Fever above 100.4 degrees Fahrenheit? -A foul vaginal odor? -Difficulty in emotions, mood and functions? -Thoughts of hurting yourself and/or ? -Painful, reddened area in your breast? -Any drainage, redness or tenderness in your IV/epidural site? -Severe headache that doesn't improve after taking medications? -Changes in vision, including temporary loss of vision, blurred vision, and/or light sensitivity? -Upper abdominal pain (usually under ribs on the right side)? -Decrease in urination or painful, frequent urinating? -Chest pain? -Shortness of breath? -Tenderness or pain with redness and/swelling in the calf(s) of your leg? Follow up visits:?? 1. 1 week visit:? incision check.? 2. 2-week visit: discuss feeding/care concerns, review control options and screen for anxiety/depression.? 3. 6-week visit for an annual exam.? ?? consultation services are available to all mothers and babies for the first year after delivery.? To make an appointment, please call [phone].? Follow Up Appointments: [facility] [Provider Group] Forms: MyHealth Info Instructions
[2023-07-09 08:49] VITALS: BP 123/82; PULSE 93; RESP 18; TEMP 36.4; O2SAT 97
== END 2023-07-09 11:54 | disposition home or self-care (01) | DRG 788 ==
PROVIDERS: Admitting Provider Obstetrics & Gynecology; PCP Family Medicine; Visit Provider Obstetrics & Gynecology
PROC: 10D00Z1 Extraction of Products of Conception, Low, Open Approach (ICD-10-PCS; CPT 59514; principal; 2023-07-07 07:15)
DX: O32.1XX0 Maternal care for breech presentation, not applicable or unspecified (principal); O99.344 Other mental disorders complicating childbirth; F41.9 Anxiety disorder, unspecified; O99.284 Endocrine, nutritional and metabolic diseases complicating childbirth; E03.9 Hypothyroidism, unspecified; O99.214 Obesity complicating childbirth; Z3A.39 39 weeks gestation of pregnancy; Z37.0 Single live birth; O99.824 Streptococcus B carrier state complicating childbirth; E78.5 Hyperlipidemia, unspecified; G43.909 Migraine, unspecified, not intractable, without status migrainosus; O16.5 Unspecified maternal hypertension, complicating the puerperium; G89.18 Other acute postprocedural pain
CPT/HCPCS: 01961; 36415; 64488; 76942; 85018; 85025; 86592; 86850; 86900; 86901; 94761; A9270; C9290; J0665; J0690; J1100; J1885; J2210; J2274; J2371; J2405; J2590; J7120

== ENCOUNTER 2023-07-14 10:21 | Outpatient (CLI) | payer OTHER, SELFPAY | END 2023-07-14 10:22 | disposition home or self-care (01) | PROVIDERS: PCP Family Medicine; Visit Provider Obstetrics & Gynecology | DX: O13.5 Gestational [pregnancy-induced] hypertension without significant proteinuria, complicating the puerperium (principal) | CPT/HCPCS: 82565; 84450; 84460; 84520 ==

== ENCOUNTER 2023-07-21 12:24 | Outpatient (CLI) | payer OTHER, SELFPAY ==
--- NOTE | 2023-07-21 17:00 | W.PM.LAC.MC ---
Consult Note - Mom Date of Visit Date of visit: 07/21/23 field sales consultant: Alix York Visit Code: Visit Patient's Information Phone number: [phone] : 1 Para: 1 Allergies No Known Drug Allergies Allergy (Verified 07/21/23 09:15) Mother's Medical History: Medical History (Updated 07/19/23 @ 11:55 by Kindra Contreras MD) GHTN Breech presentation ?O32.1XX0 - Maternal care for breech presentation, not applicable or unspecified (ICD-10) Mild anxiety ?F41.9 - Anxiety disorder, unspecified (ICD-10) Hypothyroid ?E03.9 - Hypothyroidism, unspecified (ICD-10) BMI > 30 Type of Contraception: diaphragm or condoms Delivery Information Delivery type: Primary C/S; Labored (breech) Weeks Gestation: 39.0 Gestational Age: AGA Weight: 3.86 kg Discharge Weight: 3.55 kg Baby's Information Baby's Age at Visit: 14 days Baby's Provider or Clinic: Dr. Barajas Jaundice: No Reason for Consult Reason for Consult: pain with latch, slow weight gain, concern for transfer Past Experience Past Experience: No Current Frequency of Day Feedings: every 2 - 3 hours around the clock, some cluster feeding in the evening Both Breasts: No Suck: fairly strong Latch: fairly wide Length of Time: 10 - 25 minutes Pumping Pumping: No (uses her Haakaa on the side baby doesn't nurse from) Quantity Pumped: about 4 oz total for the day Supplementing EMB Supplement: No Formula Supplement: No Baby Elimination Number of Wet Diapers a Day: 6 - 8 Number of BM a Day: 4 - 6, yellow and seedy Breast/Nipple Condition Breast Information: WNL Maternal Nipple Condition - Left: Common Nipple, Short and Cracking/ Fissures Maternal Nipple Condition - Right: Common Nipple and Short Sore Nipples: Yes (right) Interventions for Sore Nipples: [place] Onsite Pre-Feed weight: 3.422 kg Post-Feed weight: 3.482 kg Milk Transferred (mL): 60 Assessments/Interventions Assessments/Interventions: Met with mom and this now 14 day old ex- term AGA baby for consult. Mom reports was going well and she has even been able to nurse baby without the nipple shield several times. Over the past few days however, nursing has become more difficult and painful and she's had to start using the shield again. She's developed cracks to her left nipple and will sometimes have pale colored drainage on her breast pad from her nipple. Baby is nursing every 2 - 3 hours around the clock with some cluster feeding in the evening. Mom usually offers one side while using the Haakaa on the other. Nursing sessions last 10 - 25 minutes and she gets about .5 oz from the Haakaa each time. Baby has not been supplemented. Breasts WNL- symmetrical with rounded lower quadrants, intramammary distance < 1.5 inches. Mom reports her milk came in on 07/09 - 07/10. Her nipples are short but everted and don't flatten or retract on compression. Several fissures were noted on the left nipple as well as an area of irritation between 12 - 2 o'clock where the nipple meets the areola. Baby has actually lost weight from her initial visit on 03/13 (138 grams or 4.6 oz) and she's 11% below BW at 14 DOL. POC deny any caput/cephalohematoma at delivery. They state she has equal ROM when turning her head and moving her extremities. Palate is WNL. Both her upper and lower frenulum also appear to be WNL. Baby has a strong suck on a finger and the tongue easily extends past gum line when sucking on a finger. The tongue has good lateral movement to the right, but more difficulty on the left. Mom latched baby to the right side with the shield and she reported a better latch than she's had in the last few days. After a few minutes she removed the shield and with some verbal coaching to exaggerate pointing her nipple to baby's nose and bring her on quickly when she opens wide, she was able to get baby on deeply after a few attempts. She was comfortable and stated this was a better latch than she'd had recently. Baby nursed 10 - 15 minutes with some stimulation. Mom started with the shield on the left side but b/c of the irritation at the top a 24 mm was suggested and she was able to latch baby after a few attempts. She removed the shield and was able to latch baby without it but she was a little more uncomfortable (possibly d/t the current damage). Baby was sleepier on this side and after about 10 minutes, mom removed her and she was weighed. She transferred 60 ml. Baby's upper lip was noted to be blistered. Reviewed a few exercises POC could try to help with tongue lateralization and relaxation of her lips. Plan: 1. Nurse baby ALD or at least every three hours. Suggested mom offer both sides at each feeding and start with the nipple shield (whatever size feels best). See if baby will latch without the shield after a few minutes, but if she or mom start to get frustrated, ok to use it for the entire feeding. D/T baby's weight loss she does need to be supplemented so for a while mom will be triple feeding. OK to keep the nursing sessions to 10 - 15 minutes total for now. 2. Supplement baby with 1 - 2 oz EBM/formula after every nursing session for now. Paced feeding was reviewed. 3. Encouraged mom to pump 6 - 8 times/24 hours, ok to limit pumping sessions to no more than 10 minutes. She was measured and flange size recommended, handout given. 4. Encouraged POC to try the exercises 4 - 5 times/day. 5. Instructed mom on nipple care. 6. Baby has 2 week WCC with PCP later today. Meds Home Medications and Allergies Home Medications ?Medication ?Instructions ?Recorded ?Confirmed ?Type prenat.vits,sylvia,tzh-rodk-zyfed 1 tab PO QDAY 07/02/22 07/21/23 History Allergies Allergy/AdvReac Type Severity Reaction Status Date / Time No Known Drug Allergies Allergy Verified 07/21/23 09:15
== END 2023-07-21 12:25 | disposition home or self-care (01) ==
LOC: OB LAC 12:25
PROVIDERS: PCP Family Medicine; Visit Provider Obstetrics & Gynecology
DX: Z39.1 Encounter for care and examination of lactating mother (principal)
CPT/HCPCS: G0463

== ENCOUNTER 2023-08-18 13:41 | Outpatient (CLI) | payer OTHER, SELFPAY | END 2023-08-18 13:42 | disposition home or self-care (01) | LOC: NFLDREF 08-25 13:49 | PROVIDERS: PCP Family Medicine; Referring Provider Family Medicine; Visit Provider Registered Nurse | DX: E03.9 Hypothyroidism, unspecified (principal) | CPT/HCPCS: 84439; 84443 ==

== ENCOUNTER 2023-10-01 13:24 | Outpatient (CLI) | payer OTHER, SELFPAY | END 2023-10-01 13:25 | disposition home or self-care (01) | LOC: NFLDREF 10-04 08:28 | PROVIDERS: PCP Family Medicine; Referring Provider Family Medicine; Visit Provider Family Medicine | DX: E03.9 Hypothyroidism, unspecified (principal) | CPT/HCPCS: 84439; 84443 ==

== ENCOUNTER 2023-11-12 13:30 | Outpatient (CLI) | payer OTHER, SELFPAY | END 2023-11-12 13:31 | disposition home or self-care (01) | LOC: NFLDREF 11-14 12:12 | PROVIDERS: PCP Family Medicine; Referring Provider Family Medicine; Visit Provider Registered Nurse | DX: E03.9 Hypothyroidism, unspecified (principal) | CPT/HCPCS: 84439; 84443 ==

== ENCOUNTER 2023-12-24 07:58 | Outpatient (CLI) | payer OTHER, SELFPAY | END 2023-12-24 07:59 | disposition home or self-care (01) | LOC: NFLDREF 12-26 14:10 | PROVIDERS: PCP Family Medicine; Referring Provider Family Medicine; Visit Provider Registered Nurse | DX: E03.9 Hypothyroidism, unspecified (principal) | CPT/HCPCS: 84443 ==

== ENCOUNTER 2024-07-18 12:04 | Outpatient (CLI) | payer OTHER, SELFPAY | END 2024-07-18 12:05 | disposition home or self-care (01) | LOC: NFLDREF 12:04 | PROVIDERS: PCP Family Medicine; Visit Provider Registered Nurse | DX: E03.9 Hypothyroidism, unspecified (principal) | CPT/HCPCS: 84443 ==

== ENCOUNTER 2024-08-04 08:55 | Outpatient (CLI) | payer OTHER, SELFPAY | END 2024-08-04 08:56 | disposition home or self-care (01) | LOC: NFLDREF 08-05 10:09 | PROVIDERS: PCP Family Medicine; Referring Provider Family Medicine; Visit Provider Registered Nurse | DX: Z13.6 Encounter for screening for cardiovascular disorders (principal) | CPT/HCPCS: 80061 ==